=== PATIENT | female | born 1990 | race Caucasian/White ===

== ENCOUNTER 2018-06-30 12:28 | Day surgery (SDC) | payer SELFPAY ==
[2018-06-30] VITALS (9 sets, daily range): BP systolic 113–133; BP diastolic 69–84; PULSE 60–91; RESP 14–16; TEMP 36.6–37; O2SAT 92–98; BMI 37.7
[2018-06-30 13:01] LABS: Internal QC Validated? YES +Cl - CLEAR BKGD; Pregnancy, Urine Negative Negative
[2018-06-30] MEDS: Cefazolin 2 GM in 0.9% Normal Saline 100 ML IV (15:04)
[2018-06-30] MEDS: Bupiv/Epi 0.5% Mpf 30 ML Vial (15:36)
--- NOTE | 2018-06-30 15:51 | PCM.IMDPSTOP ---
Immediate Post-Op Note Date of Procedure: 06/30/18 Primary Surgeon/Physician: Daniel Shaikh MD director school of nursing: None Pre-Operative Diagnosis: right knee pain Post-Operative Diagnosis: right knee plicae Surgery/Procedure Performed:: right knee arthroscopic plicae resection Description of Surgical Findings:: see op report Estimated Blood Loss: minimal Specimen's removed: none Type of Anesthesia:: General Special Medications: ancef - Admit VTE Documentation VTE Present on Admission: No VTE Mechan Device Prophylaxis: SCD's VTE Pharm Prophylaxis ordered?: Yes
--- NOTE | 2018-07-06 21:36 | PCM.OPRPT ---
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 Patient was brought back to the operating room where they were transferred to the bed. Anesthesia assumed control of the C-spine airway and administered anesthetic. All bony prominences were identified and well-padded and the R leg was placed in the arthroscopic leg rodriguez. The contralateral leg was then draped over the bed and well-padded. There was padding underneath both sciatic nerves. The foot of the bed was then dropped and the R leg was prepped in a sterile fashion. The surgeon then scrubbed. Upon reentering the room, the operative leg was draped in a standard orthopedic fashion. A timeout was called, everyone agreed upon the side, the site, the procedure to be performed, patient's identity and antibiotics given. Incisions were marked out for the medial and lateral infrapatellar portals. Esmarch bandage was then used to exsanguinate the leg and tourniquet was placed at 250 mmHg. At this time, the lateral portal incision was made in a vertical fashion. The trocar was placed into the joint. The camera was then placed and the patellofemoral joint was visualized. The patella did appear to have grade 1 chondral changes. The trochlea appeared to have minimal chondral changes. We then directed our attention to the medial gutter where there was no foreign body. upon trying to enter the medial gutter a large medial plicae was encountered and there were noted striations on the medial femoral condyle. Then directed our attention to the medial joint compartment. There were minimal chondral changes on the medial distal femur, minimal chondral changes on the medial tibial plateau. The medial meniscus had no tears. The medial portal was then placed under direct visualization using a spinal needle an 11 blade scalpel. Once this was done a probe was placed in the joint and the meniscus was probed finding no appreciable tears. Attention was then turned towards the notch where the anterior cruciate ligament was intact. PCL was visualized and appeared intact. Attention was then directed towards the lateral compartment where the lateral distal femur had minimal chondral changes, the lateral proximal tibia had minimal chondral changes. The lateral meniscus had minimal. We then directed our attention to the lateral gutter, which was visualized and no free bodies were noted. At this time our attention was again directed to the PF joint and the plicae was again visualized. the shaver was put into the joint and the plicae was resected. At this time the wound was copiously irrigated out with normal saline with epinephrine. The wound was closed with 4-0 nylon and 0.5% Marcaine and epinephrine were injected for local anesthetic. Xeroform was placed over the incision. Sterile dressing was placed. Compressive dressing was placed. Tourniquet was let down. For that there was then placed up. Patient was awakened by anesthesia patient was transferred to the PACU for recovery in stable condition. Postoperative plan: Patient will be made weight-bear as tolerated. Return to activities as tolerated. He will come to the office in 2 weeks for postoperative wound check and suture removal. If he is doing well that time he can follow-up as needed. - Complications none - Admit VTE Documentation VTE Present on Admission: No VTE Mechan Device Prophylaxis: SCD's VTE Pharm Prophylaxis ordered?: Yes
--- OUTSIDE RECORDS SUMMARY | 2018-08-25 21:34 | XMS RPT_ITS ---
:1990 Author Organization [facility] Care Team Providers Name Role Phone Daniel Shaikh Attending Unavailable Daniel Shaikh Referring Unavailable Sierra Holloway Primary Care Unavailable PROBLEMS PROBLEMS DATE TYPE CONDITION / CODE ATTENDING STATUS SOURCE 06/30/2018 Unknown G89.18 - Other acute Daniel Shaikh Active [place] postprocedural pain [facility] / G89.18(ICD-10) Hospital Repository PROCEDURES PROCEDURES No Procedure Records FoundRESULTS RESULTS OPERATIVE REPORT Observed: 07/06/2018 Status: F Source: RONNA 9:48 PM [facility] REPOSITORY [facility] Medical Records Department [address] [place] [address] Operative Report 07/06/18 2136 MR#: [id number] Acct: [id number] Name: GISSELL SHEEHAN Rep #: [id number] : 1990 28 From: Daniel Shaikh MD PCP: Sierra Holloway DO Status: [facility] Y Location: [facility] [place] Report of Operation Date of Procedure: 06/30/18 Pre-Operative Diagnosis: right knee pain Post-Operative Diagnosis: right knee plicae Surgery/Procedure Performed:: right knee arthroscopic plicae resection Description of Surgical Findings:: see op report manager agency: None Type of Anesthesia:: General Special Medications: ancef Specimen's removed: none Estimated Blood Loss (mL): minimal Fluids Replaced: crystalloid Description of Procedure: On the date of the procedure, the patient's R lower extremity was marked in the preoperative area. Patient was brought back to the operating room where they were transferred to the bed. Anesthesia assumed control of the C-spine airway and administered anesthetic. All bony prominences were identified and well-padded and the R leg was placed in the arthroscopic leg rodriguez. The contralateral leg was then draped over the bed and well-padded. There was padding underneath both sciatic nerves. The foot of the bed was then dropped and the R leg was prepped in a sterile fashion. The surgeon then scrubbed. Upon reentering the room, the operative leg was draped in a standard orthopedic fashion. A timeout was called, everyone agreed upon the side, the site, the procedure to be performed, patient's identity and antibiotics given. Incisions were marked out for the medial and lateral infrapatellar portals. Esmarch bandage was then used to exsanguinate the leg and tourniquet was placed at 250 mmHg. At this time, the lateral portal incision was made in a vertical fashion. The trocar was placed into the joint. The camera was then placed and the patellofemoral joint was visualized. The patella did appear to have grade 1 chondral changes. The trochlea appeared to have minimal chondral changes. We then directed our attention to the medial gutter where there was no foreign body. upon trying to enter the medial gutter a large medial plicae was encountered and there were noted striations on the medial femoral condyle. Then directed our attention to the medial joint compartment. There were minimal chondral changes on the medial distal femur, minimal chondral changes on the medial tibial plateau. The medial meniscus had no tears. The medial portal was then placed under direct visualization using a spinal needle an 11 blade scalpel. Once this was done a probe was placed in the joint and the meniscus was probed finding no appreciable tears. Attention was then turned towards the notch where the anterior cruciate ligament was intact. PCL was visualized and appeared intact. Attention was then directed towards the lateral compartment where the lateral distal femur had minimal chondral changes, the lateral proximal tibia had minimal chondral changes. The lateral meniscus had minimal. We then directed our attention to the lateral gutter, which was visualized and no free bodies were noted. At this time our attention was again directed to the PF joint and the plicae was again visualized. the shaver was put into the joint and the plicae was resected. At this time the wound was copiously irrigated out with normal saline with epinephrine. The wound was closed with 4-0 nylon and 0.5% Marcaine and epinephrine were injected for local anesthetic. Xeroform was placed over the incision. Sterile dressing was placed. Compressive dressing was placed. Tourniquet was let down. For that there was then placed up. Patient was awakened by anesthesia patient was transferred to the PACU for recovery in stable condition. Postoperative plan: Patient will be made weight-bear as tolerated. Return to activities as tolerated. He will come to the office in 2 weeks for postoperative wound check and suture removal. If he is doing well that time he can follow-up as needed. - Complications none - Admit VTE Documentation VTE Present on Admission: No VTE Mechan Device Prophylaxis: SCD's VTE Pharm Prophylaxis ordered?: Yes 07/06/182147 <Electronically signed by Daniel Shaikh MD> Date Daniel Shaikh MD CC: Sierra Holloway, DO; Daniel Shaikh MD Signed ,URINE Collected: 06/30/2018 Status: F Source: RONNA 12:40 PM [facility] REPOSITORY Order Comment: Reason for Laboratory Test preop TYPE CODE TESTS RESULT OUT OF REFERENCE UNITS RANGE LAB L400.8000 Negative Normal HCGUQUAL Negative Result Comment: Very dilute urine specimens, as indicated by a low specific gravity, may not contain bank representative levels of hCG. If is still suspected, a first morning urine specimen should be collected 48 hours later and tested. Performed By: #### [id number] #### [facility] [address] [place], [address] ALLERGIES ALLERGIES DATE TYPE / CODE NAME / CODE REACTION SEVERITY SOURCE 06/29/2018 Drug bee venom Anaphylaxis Unknown Ronna Allergy/416 protein ([facility] 420084(SNOM bee)/[id number] Hospital ED CT) 5(RXNORM) Repository ENCOUNTERS ENCOUNTERS ADMIT/DISCHARGE ACCOUNT ADMITTING ENCOUNTER LOCATION SOURCE NUMBER CLASS 06/30/2018/ [id number] Ambulatory Ronna Bentley 8 8 [facility] ing:SDCRoom: Repository [id number] PAYERS PAYERS ENCOUNTER GUARANTOR PAYER SUBSCRIBER SOURCE 06/30/2018 ABY Primary NOT GIVENUNK Ronna [id number] Insurance:SELF PAY [place], [place] Number: Effective Repository [id number]: [phone] Date:2018-06-21 [phone] ()
== END 2018-06-30 18:35 | disposition home or self-care (01) ==
LOC: SDC 12:31 → AC 12:31
PROVIDERS: Anesthesiology; Family Provider Family Medicine; PCP Family Medicine; Referring Provider Specialist; Visit Provider Specialist
PROC: (CPT 29870; principal; 2018-06-30 15:00)
DX: M25.561 Pain in right knee (principal); F41.9 Anxiety disorder, unspecified; Z79.899 Other long term (current) drug therapy; M22.2X1 Patellofemoral disorders, right knee
CPT/HCPCS: 29875; 81025; J7120; J2405

== ENCOUNTER → 2019-04-28 14:27 | Outpatient (CLI) | payer OTHER, SELFPAY ==
[2019-04-28 13:56] VITALS: BMI 37.7
[2019-04-28 15:19] LABS: Absolute Lymphocyte Count 2.62 X10^3/uL (0.83-4.51); Absolute Neutrophil Count 4.6 X10^3/uL (2.0-7.7); Basophil# 0.06 X10^3/uL; Basophil% 0.7 % (0-1); Eosinophil# 0.18 X10^3/uL; Eosinophils% 2.2 % (0-5); Hematocrit 40.6 % (37-47); Hemoglobin 14.1 g/dL (12.0-15.0); Lymphocyte # 2.62 X10^3/ul (4.0); Lymphocyte % 32.6 % (19-41); Mean Corp Hgb Conc 34.7 g/dL (32-36); Mean Corpuscular Hgb 31.7 pg (27.0-32.0); Mean Corpuscular Volume 91.2 fL (81-99); Mean Platelet Vol. 10.9 fl (6.2-12.0); Monocyte# 0.58 X10^3/uL; Monocyte% 7.2 % (0-10); NRBC Flagged by Analyzer 0 % (0-5); Neutrophil # 4.57 X10^3/uL (2.7-7.7); Neutrophil % 56.9 % (47-70); Platelet Count 211 K/mm3 (150-450); RBC Distribution Width CV 11.9 % (11.6-14.6); RBC Distribution Width SD 39.5 fl (35.1-43.9); Red Blood Count 4.45 M/mm3 (4.2-5.4)
[2019-04-28 15:44] LABS: Thyroid Stim Hormone (TSH) 2.44 uIU/mL (0.358-3.74)
== END ==
PROVIDERS: Family Provider Family Medicine; PCP Family Medicine; Referring Provider Obstetrics & Gynecology; Visit Provider Obstetrics & Gynecology
DX: N93.9 Abnormal uterine and vaginal bleeding, unspecified (principal)
CPT/HCPCS: 36415; 84443; 85025

== ENCOUNTER → 2020-07-05 16:26 | Outpatient (CLI) | payer SELFPAY ==
[2020-07-05 15:06] VITALS: BMI 38.2
[2020-07-05 18:02] LABS: Prolactin 9.9 ng/mL; Thyroid Stim Hormone (TSH) 1.85 uIU/mL (0.358-3.74)
[2020-07-09 20:07] LABS: Dilute Prothrombin Time (dPT) 37.8 sec (0.0-55.0); Dilute Russell Viper Venom 33.7 sec (0.0-47.0); PTT-LA 34.4 sec (0.0-51.9); Thrombin Time 17.2 sec (0.0-23.0); dPT Confirm Ratio 1.22 Ratio (0.00-1.40)
[2020-07-09 20:26] LABS: Anti-Cardiolipin Ab, IgA, Qn < 9 APL U/mL (0-11); Anti-Cardiolipin Ab, IgG, Qn < 9 GPL U/mL (0-14); Anti-Cardiolipin Ab, IgM, Qn 13 MPL U/mL (0-12); Beta-2-Glycoprotein I IgA <9 (0-25); Beta-2-Glycoprotein I IgG <9 (0-20); Beta-2-Glycoprotein I IgM <9 (0-32); Interpretation Comment: (.)
== END ==
PROVIDERS: PCP Family Medicine; Referring Provider Obstetrics & Gynecology; Visit Provider Obstetrics & Gynecology
DX: N94.3 Premenstrual tension syndrome (principal); N93.9 Abnormal uterine and vaginal bleeding, unspecified; N97.9 Female infertility, unspecified
CPT/HCPCS: 36415; 80194; 82627; 84146; 84403; 84443; 86146; 86147; 82626

== ENCOUNTER → 2020-07-09 14:27 | Outpatient (CLI) | payer SELFPAY ==
[2020-07-05 15:06] VITALS: BMI 38.2
--- NOTE | 2020-07-09 14:32 | US_ITS ---
HISTORY: BILAT PELVIC PAIN X 3 YEARSHX OF C SECTIONS /16/17HX OF SURGERY FOR ECTOPIC 19 ADDITIONAL HISTORY: None provided. COMPARISON: None TECHNIQUE: Transabdominal and transvaginal sonographic images of the pelvis were acquired utilizing grayscale, color Doppler and spectral Doppler imaging. FINDINGS: UTERUS: Uterus measures 9.1 x 4.9 x 6.4 cm on transvaginal imaging. No distinct myometrial mass. section scar. ENDOMETRIUM: Normal measuring 8 mm in thickness. OVARIES: Right ovary measures 2.7 x 3.2 x 3.8 cm and left ovary measures 4.7 x 3.1 x 3.4 cm. No distinct mass seen on transabdominal imaging. Bilateral follicles are noted measuring up to 1.7 cm. Flow demonstrated in the ovaries with spectral Doppler evaluation. Not visualized due to bowel gas on transvaginal imaging. ADNEXA: No mass. FREE FLUID: Small amount of free fluid. US/Transvaginal Non- IMPRESSION: No significant abnormality. at 0549 Reported and signed by: Millie Espinoza MD Electronically Signed: Millie Espinoza MD at 5:48 EST Tel , Service support ,
--- NOTE | 2020-07-09 14:32 | US_ITS ---
HISTORY: BILAT PELVIC PAIN X 3 YEARSHX OF C SECTIONS /16/17HX OF SURGERY FOR ECTOPIC 19 ADDITIONAL HISTORY: None provided. COMPARISON: None TECHNIQUE: Transabdominal and transvaginal sonographic images of the pelvis were acquired utilizing grayscale, color Doppler and spectral Doppler imaging. FINDINGS: UTERUS: Uterus measures 9.1 x 4.9 x 6.4 cm on transvaginal imaging. No distinct myometrial mass. section scar. ENDOMETRIUM: Normal measuring 8 mm in thickness. OVARIES: Right ovary measures 2.7 x 3.2 x 3.8 cm and left ovary measures 4.7 x 3.1 x 3.4 cm. No distinct mass seen on transabdominal imaging. Bilateral follicles are noted measuring up to 1.7 cm. Flow demonstrated in the ovaries with spectral Doppler evaluation. Not visualized due to bowel gas on transvaginal imaging. ADNEXA: No mass. FREE FLUID: Small amount of free fluid. US/Pelvic (Non ) IMPRESSION: No significant abnormality. at 0549 Reported and signed by: Millie Espinoza MD Electronically Signed: Millie Espinoza MD at 5:48 EST Tel , Service support ,
== END ==
PROVIDERS: PCP Family Medicine; Referring Provider Obstetrics & Gynecology; Visit Provider Obstetrics & Gynecology
DX: R10.2 Pelvic and perineal pain (principal)
CPT/HCPCS: 76830; 76856; 93976

== ENCOUNTER → 2020-09-20 11:40 | Outpatient (CLI) | payer SELFPAY ==
[2020-07-05 15:06] VITALS: BMI 38.2
--- NOTE | 2020-09-20 11:50 | RAD_ITS ---
STUDY: HYSTEROSALPINGOGRAM. REASON FOR EXAM: Female, 30 years old. Infertility FLUOROSCOPY TIME (if supplied): ( 16 seconds. ) minutes/seconds. 2 images were submitted. TECHNIQUE: A hysterosalpingogram was performed by the auditor tax. Imaging was submitted. COMPARISON: None. FINDINGS: The uterus is unremarkable. The left fallopian tube is patent with spill. The patient is status post right fallopian tube resection due to prior ectopic . RAD/Salpingogram IMPRESSION: Patency of the left fallopian tube. The uterus is unremarkable. Electronically Signed: Wilner Arroyo MD at 13:13 EST , Service support ,
--- NOTE | 2020-09-20 12:48 | OP.PCM_ITS ---
Problem List (1) History of ectopic Status: Acute (2) Infertility Status: Acute Report of Operation Date of Procedure: 09/20/20 Pre-Operative Diagnosis: Infertility, history of ectopic Post-Operative Diagnosis: Same Surgery/Procedure Performed:: Hysterosalpingogram Description of Surgical Findings:: Left tubal patency. Right fallopian tube surgically absent. 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 Speculum was placed in the vagina until the cervix was easily visualized. Her cervix was cleansed with a Betadine solution. The balloon on the HSG catheter was inflated. Contrast medium was injected through the catheter and left tubal patency was confirmed. The procedure was deemed complete. All instruments removed from the patient. - Complications None apparent Multi Select Codes - Urinary/Genital Urinary/Genital CPT Codes: 39138 HSG/SIS
== END ==
PROVIDERS: PCP Family Medicine; Referring Provider Obstetrics & Gynecology; Visit Provider Obstetrics & Gynecology
DX: N97.9 Female infertility, unspecified (principal)
CPT/HCPCS: 58340; 74740

== ENCOUNTER → 2022-01-27 | Outpatient (CLI) | payer SELFPAY ==
[2022-01-27 09:56] LABS: Thyroid Stim Hormone (TSH) 2.58 uIU/mL (0.358-3.74)
[2022-01-27 10:05] LABS: Hemoglobin A1c 5.8 % (3.8-5.6)
[2022-01-29 18:07] LABS: Dilute Prothrombin Time (dPT) 35.3 sec (0.0-47.6); Dilute Russell Viper Venom 34.2 sec (0.0-47.0); PTT-LA 33.5 sec (0.0-51.9); Thrombin Time 18.4 sec (0.0-23.0); dPT Confirm Ratio 1.03 Ratio (0.00-1.34)
[2022-01-29 19:22] LABS: Anti-Cardiolipin Ab, IgA, Qn < 9 APL U/mL (0-11); Anti-Cardiolipin Ab, IgG, Qn < 9 GPL U/mL (0-14); Anti-Cardiolipin Ab, IgM, Qn 14 MPL U/mL (0-12); Beta-2-Glycoprotein I IgA <9 (0-25); Beta-2-Glycoprotein I IgG <9 (0-20); Beta-2-Glycoprotein I IgM <9 (0-32); Interpretation Comment: (.)
== END | disposition home or self-care (01) ==
LOC: PAVLAB 09:05
PROVIDERS: PCP Family Medicine; Referring Provider Obstetrics & Gynecology; Visit Provider Obstetrics & Gynecology
DX: N96 Recurrent pregnancy loss (principal); N93.9 Abnormal uterine and vaginal bleeding, unspecified
CPT/HCPCS: 36415; 83036; 84443; 86146; 86147

== ENCOUNTER → 2022-02-10 | Outpatient (CLI) | payer SELFPAY ==
--- NOTE | 2022-02-10 11:30 | US_ITS ---
STUDY: ULTRASOUND TRANSVAGINAL CLINICAL: Female, 31 years old. pelvic pain-CHRONIC -- AUB -- C SECTIONS 14,16,17 -- SURGERY FOR ECTOPIC 2019 9 para 3 AB 5 ectopic 1. x3. LMP 02/06/2022. TECHNIQUE: Transvaginal COMPARISON: 07/09/2020 FINDINGS: Normal uterine size measuring 8.2 x 6 x 4 cm in maximal craniocaudal dimension. There are no myometrial masses. Normal endometrial thickness measuring 7 mm. There are no endometrial masses, and there is no fluid in the endometrial cavity. Normal uterine cervix. Normal right ovary, measuring 2.6 x 3.2 x 2.5 cm. There is a 1.6 x 2.3 x 1.3 cm cyst. Only seen transabdominally. Left ovary measures 6 x 5.5 x 4.5 cm. There is a large simple ovarian cyst 5.5 x 5 x 3.3 cm. There is no free fluid in the pelvis. Polycystic ovary disease: No. There is color flow to both ovaries. Urinary bladder volume 315 ml. US/Transvaginal Non- IMPRESSION: No adnexal masses, large pelvic fluid or ovarian torsion. Large simple appearing left ovarian cyst. Follow-up post one menstrual cycle recommended, depending on suspicion level follow-up ultrasound/MRI. Small right ovarian cyst. Electronically Signed: Sarah Rust MD at 4:16 EDT Reading Location ID and State: , Service support ,
--- NOTE | 2022-02-10 11:30 | US_ITS ---
STUDY: ULTRASOUND TRANSVAGINAL CLINICAL: Female, 31 years old. pelvic pain-CHRONIC -- AUB -- C SECTIONS 14,16,17 -- SURGERY FOR ECTOPIC 2019 9 para 3 AB 5 ectopic 1. x3. LMP 02/06/2022. TECHNIQUE: Transvaginal COMPARISON: 07/09/2020 FINDINGS: Normal uterine size measuring 8.2 x 6 x 4 cm in maximal craniocaudal dimension. There are no myometrial masses. Normal endometrial thickness measuring 7 mm. There are no endometrial masses, and there is no fluid in the endometrial cavity. Normal uterine cervix. Normal right ovary, measuring 2.6 x 3.2 x 2.5 cm. There is a 1.6 x 2.3 x 1.3 cm cyst. Only seen transabdominally. Left ovary measures 6 x 5.5 x 4.5 cm. There is a large simple ovarian cyst 5.5 x 5 x 3.3 cm. There is no free fluid in the pelvis. Polycystic ovary disease: No. There is color flow to both ovaries. Urinary bladder volume 315 ml. US/Pelvic (Non ) IMPRESSION: No adnexal masses, large pelvic fluid or ovarian torsion. Large simple appearing left ovarian cyst. Follow-up post one menstrual cycle recommended, depending on suspicion level follow-up ultrasound/MRI. Small right ovarian cyst. Electronically Signed: Sarah Rust MD at 4:16 EDT Reading Location ID and State: , Service support ,
[2022-02-10 13:27] LABS: Cholesterol 158 mg/dL (200); High Density Lipoprotein 37 mg/dL; Triglycerides 99 mg/dL; Very Low Density Lipoprotein 20 mg/dL (5-40)
== END | disposition home or self-care (01) ==
PROVIDERS: PCP Family Medicine; Referring Provider Obstetrics & Gynecology; Visit Provider Obstetrics & Gynecology
DX: N93.9 Abnormal uterine and vaginal bleeding, unspecified (principal); R10.2 Pelvic and perineal pain
CPT/HCPCS: 36415; 76830; 76856; 80061; 93976

== ENCOUNTER → 2022-04-08 | Outpatient (CLI) | payer SELFPAY, OTHER ==
--- NOTE | 2022-04-08 12:32 | US_ITS ---
EXAM: US PELVIS TRANSABDOMINAL AND TRANSVAGINAL, COMPLETE CLINICAL INDICATION: follow up ultrasound -- left ovarian cyst follow up ultrasound -- left ovarian cyst TECHNIQUE: Transabdominal and transvaginal pelvic ultrasound was performed with grayscale and color Doppler imaging. Transvaginal imaging was used for better evaluation of the endometrium and adnexa. This report was created using [employer] report generation technology. COMPARISON: Ultrasound 02/10/2022 and 07/09/2020 FINDINGS: UTERUS/CERVIX: The uterus is anteverted and measures 10.7 x 5.4 x 3.7 cm. The endometrium measures 5 mm in thickness and it is hyperechoic. There is no uterine mass. RIGHT OVARY: The right ovary measures 3.2 x 2.8 x 2.1 cm. Blood flow is present in the right ovary. LEFT OVARY: The left ovary measures 8.2 x 7.0 x 4.8 cm. There is a simple appearing left ovarian cyst, which measures 6.7 x 4.4 x 6.1 cm. On the previous exam, the cyst measured 5.3 x 3.3 x 4.9 cm. Blood flow is present in the left ovary. FREE FLUID: There is a small amount of free fluid in the posterior cul-de-sac of the pelvis. BLADDER: Unremarkable as visualized. Wall is normal thickness for degree of distention. US/Transvaginal Non- IMPRESSION: 1. 6.7 cm simple appearing left ovarian cyst, which has increased in size from the exam done in January. SRU Consensus Conference guidelines (Cleary, et. al. Radiology 2019;293:359-371) recommend follow-up pelvic ultrasound in 1 year. 2. Small amount of free fluid in the posterior cul-de-sac pelvis, probably physiologic. Electronically Signed: Murray Taylor MD at 4:40 EDT ,
--- NOTE | 2022-04-08 12:32 | US_ITS ---
EXAM: US PELVIS TRANSABDOMINAL AND TRANSVAGINAL, COMPLETE CLINICAL INDICATION: follow up ultrasound -- left ovarian cyst follow up ultrasound -- left ovarian cyst TECHNIQUE: Transabdominal and transvaginal pelvic ultrasound was performed with grayscale and color Doppler imaging. Transvaginal imaging was used for better evaluation of the endometrium and adnexa. This report was created using [facility] report generation technology. COMPARISON: Ultrasound 02/10/2022 and 07/09/2020 FINDINGS: UTERUS/CERVIX: The uterus is anteverted and measures 10.7 x 5.4 x 3.7 cm. The endometrium measures 5 mm in thickness and it is hyperechoic. There is no uterine mass. RIGHT OVARY: The right ovary measures 3.2 x 2.8 x 2.1 cm. Blood flow is present in the right ovary. LEFT OVARY: The left ovary measures 8.2 x 7.0 x 4.8 cm. There is a simple appearing left ovarian cyst, which measures 6.7 x 4.4 x 6.1 cm. On the previous exam, the cyst measured 5.3 x 3.3 x 4.9 cm. Blood flow is present in the left ovary. FREE FLUID: There is a small amount of free fluid in the posterior cul-de-sac of the pelvis. BLADDER: Unremarkable as visualized. Wall is normal thickness for degree of distention. US/Pelvic (Non ) IMPRESSION: 1. 6.7 cm simple appearing left ovarian cyst, which has increased in size from the exam done in January. SRU Consensus Conference guidelines (Cleary, et. al. Radiology 2019;293:359-371) recommend follow-up pelvic ultrasound in 1 year. 2. Small amount of free fluid in the posterior cul-de-sac pelvis, probably physiologic. Electronically Signed: Murray Taylor MD at 4:40 EDT ,
== END | disposition home or self-care (01) ==
PROVIDERS: PCP Family Medicine; Visit Provider Obstetrics & Gynecology
DX: N83.202 Unspecified ovarian cyst, left side (principal)
CPT/HCPCS: 76830; 76856

== ENCOUNTER 2022-05-13 08:54 | Day surgery (SDC) | payer SELFPAY ==
[2022-05-09 09:28] LABS: Hematocrit 41.9 % (37-47); Hemoglobin 14.5 g/dL (12.0-15.0); Mean Corp Hgb Conc 34.6 g/dL (32-36); Mean Corpuscular Hgb 30.8 pg (27.0-32.0); Mean Platelet Vol. 10.5 fl (6.2-12.0); Platelet Count 258 K/mm3 (150-450); RBC Distribution Width CV 11.4 % (11.6-14.6); RBC Distribution Width SD 36.6 fl (35.1-43.9); Red Blood Count 4.71 M/mm3 (4.2-5.4)
[2022-05-09 10:09] LABS: Anion Gap 8 (5-15); BUN 9 mg/dL (7-18); BUN/Creat Ratio 8.8 RATIO (10-20); Calcium,Total 9.9 mg/dL (8.5-10.1); Chloride 103 mmol/L (98-107); Creatinine, Serum 1.02 mg/dL (0.55-1.02); EST Glomerular Filtration Rate 66 mL/min (>60); Est Glom Filt Rate - Afr Amer 80 mL/min (>60); Glucose 104 mg/dL (74-106); Potassium 3.9 mmol/L (3.5-5.1); Sodium Level 137 mmol/L (136-145)
[2022-05-09 10:13] LABS: Hemoglobin A1c 5.5 % (3.8-5.6)
[2022-05-13] VITALS (7 sets, daily range): BP systolic 122–137; BP diastolic 75–96; PULSE 61–76; RESP 16; TEMP 36.3–37.1; O2SAT 96–100; BMI 36.3
[2022-05-13] MEDS: Lactated Ringers 1,000 ML 15 ML IV (09:10)
[2022-05-13 09:34] LABS: Internal QC Validated? YES +Cl - CLEAR BKGD; Pregnancy, Urine Negative Negative
[2022-05-13 09:45] LABS: Bedside Glucose 105 mg/dL (74-106)
[2022-05-13] MEDS: Enoxaparin 40 MG/0.4 ML Syringe SC (10:13)
--- NOTE | 2022-05-13 10:22 | HP.PCM_ITS ---
History and Physical Intake Vital Signs ? 05/05/2209:10 05/05/2209:12 Height 5 ft 3 in 5 ft 3 in Weight: 204 lb ? BMI 36.1 ? BP 126/91 H ? 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 Is patient in pain?: No Allergies bee venom protein (honey bee) Allergy (Verified 01/27/22 08:08) Anaphylaxis Medications alprazolam 0.5 mg tablet 0.5 mg PO PRN PRN Anxiety 06/29/18 [History Confirmed 05/05/22] loratadine 10 mg tablet (Claritin) 10 mg PO DAILY 01/27/22 [History Confirmed 05/05/22] magnesium oxide 500 mg capsule 500 mg PO DAILY 01/27/22 [History Confirmed 05/05/22] metformin 500 mg tablet 500 mg PO BID #60 tabs 01/27/22 [Rx Confirmed 05/05/22] multivitamin 1 tab PO DAILY 01/27/22 [History Confirmed 04/03/22] Is last menstrual period known: Yes Last Menstrual Period: 04/27/22 Post menopausal: No Patient : No : No [facility] History?(Updated 05/05/22 @ 09:[address] Virgie Matias MD) Anxiety Depression History of gestational diabetes Surgical History? delivery delivered H/O: knee surgery History of laparotomy History of tonsillectomy Hx laparoscopic cholecystectomy Family History? Father Diabetes Social History? Smoking Status:? Never smoker alcohol intake:? never substance use type:? does not use caffeine:? Yes what type of physical activity do you participate in:? walking seatbelt use:? always do you feel safe at home:? Yes additional social history:? 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 she is having intermittent pelvic pain, trouble sitting for long periods of time and recently diagnosed with diabetes, on metformin.? she denies any vb abnormal discharge. she has painful menses and they are still irregular.? cyclic provera is ordered.? cyst increased to 6.7 cm and is still simple in size.? no suspicion for ovarian torsion at this time. Female Reproductive History Last Menstrual Period: 04/27/22 Questions: metorrhagia: No, sexually active: Yes, dyspareunia: No and PCB: No Menopausal Symptoms: No hot flashes, No night sweats, No weight change, No mood changes, No difficulty concentrating, No sleep problems and No change in libido History ? ? ? 9 ? Elective abortions ? Hx Para ? ? ? 3 ? Spontaneous abortions ? ? ? 5 Hx # Term Pregnancies ? Ectopic pregnancies ? ? ? 1 Hx # Pregnancies ? Multiple births ? # of living children ? ? ? 3 Past Pregnancies Del. Date Name GA/Weeks Outcome Route Bth Weight Gen Labor Lgth Anesthesia Del Locatn Provider FOB Unknown 2013 [place] ? live - full term C-s ection ? Male ? ? [facility] [place] ? ? Unknown 2013 [place] ? live - full term C-sec tion ? Female ? ? Dr Jimenez ? ? Unknown 2016 [place] ? live - full term C-s ection ? Male ? ? Dr. Jimenez ? ? ROS Const Constitutional: Denies fatigue, night sweats, weight gain or weight loss ENT ENT: Reports system reviewed and no additional complaints, except as documented Cardio Card: Denies chest pain Resp Resp: Denies cough or dyspnea GI GI: Reports as per HPI, abdominal pain and bloating; Denies constipation, nausea or vomiting : Reports as per HPI; Denies hot flashes, nipple discharge, vaginal discharge, vaginal dryness, vaginal odor or vaginal pruritus Musc Musc: Denies arthralgias, back pain or muscle weakness Skin Skin/Breast: Denies alopecia, change in hair, dry skin, breast mass, breast pa in, breast skin changes or nipple discharge Neuro Neuro: Reports system reviewed and no additional complaints, except as documented Psych Psych: Reports system reviewed and no additional complaints, except as documented; Denies change in libido or difficulty concentrating Endo Endo: Denies cold intolerance, excessive sweating, heat intolerance or polydipsia Ankit/Lymph Hematologic/Lymphatic: Denies easy bleeding, Denies easy bruising and Denies lymphadenopathy Exam Const General: cooperative, healthy appearing, comfortable, no acute distress and well developed Orientation: alert [facility] Head: normal to inspection and normocephalic Ears: hearing grossly normal bilaterally and external ears normal Nose: external nose normal and nares normal Face and sinus: normal facial exam Neck Neck: normal visual inspection and no lymphadenopathy Thyroid: thyroid normal Chest Chest palpation & inspection: normal inspection of the chest Resp Effort & Inspection: normal respiratory effort Auscultation: clear to auscultation bilaterally Cardio Rate: regular rate Rhythm: regular rhythm Heart Sounds: S1 normal and S2 normal GI Inspection: normal to inspection and non-distended Palpation: soft and no hepatosplenomegaly Musc Other: gross motor intact no deficits, full bilateral strength Skin General: no rashes or lesions noted Neuro General: patient alert, patient awake, moves all extremities and no focal motor deficits Motor: muscle tone normal throughout Extrem General: normal to inspection and no pedal edema Psych Appearance: grossly normal Mental Status: mental status grossly normal Affect: normal affect Speech and Movement: speech and movement normal Coding Level of Care Code Off vis,est,level 4 Diagnoses Diabetes? E11.9 APL (antiphospholipid syndrome)? D68.61 Polycystic ovarian syndrome? E28.2 Infertility? Abnormal uterine bleeding? N93.9 Ovarian cyst? N83.209 Assessment and Plan Assessment and Plan (1) Diabetes: ?Status:?Acute ?Comment: mgd by PCP. metformin. (2) APL (antiphospholipid syndrome): ?Status:?Acute (3) Polycystic ovarian syndrome: ?Status:?Acute ?Comment: metformin.? weight management. (4) Infertility: ?Status:?Acute ?Comment: Progesterone level 11/16/20- 1.1.? sec to PCOS (5) Abnormal uterine bleeding: ?Status:?Acute ?Comment: sec to PCOS, cyclic provera ordered, discussed weight loss.? metformin ordered to aid (6) Ovarian cyst: ?Status:?Acute ?Comment: left ovarian cyst- inc in size 6.7 cm plan laparoscopic ovarian cystectomy, chromotubation. no preop needed. Plan After discussing the patient's diagnosis and treatment plan options, patient wishes to proceed with surgical management.? I have discussed with the patient the risks, benefits, and alternatives of the procedure which include but are not limited to risks of anesthesia, bleeding, infection, possible damage to bowel, bladder, or surrounding vasculature which could lead to additional surgery to evaluate any complications.? Patient agrees to procedure and wishes to proceed.? ACOG/uptodate references given for additional information regarding procedure.? UPDATE- I have seen the patient and performed any clinically relevant updates to the history and physical exam. Virgie Matias MD
--- NOTE | 2022-05-13 10:25 | PCM.OPRPT ---
Problems Associated Problem List Diagnoses (1) Abnormal uterine bleeding: (2) Ovarian cyst: (3) Polycystic ovarian syndrome: (4) APL (antiphospholipid syndrome): Report of Operation Date of Procedure: 05/13/22 Pre-Operative Diagnosis: see problem list Post-Operative Diagnosis: same Surgery/Procedure Performed:: laparoscopic lysis of adhesions left ovarian cystotomy chromotubation Surgeon: Virgie Matias alkylation operator: None (bam) Type of Anesthesia: General and Local Special Medications: floseal karo Specimen's removed: none Drains: none Estimated Blood Loss (mL): 50 Fluids Replaced: crystalloid Description of Procedure: Patient was taken in the operating room and was placed under general anesthesia was prepped and draped in normal sterile fashion in the dorsal lithotomy position. Bladder was drained of clear urine and SCDs were on preoperatively. Uterus was sounded and a uterine manipulator was placed after dilating. Attention was then paid to the abdominal portion of the procedure and the umbilicus was elevated with towel clamps and injected with Marcaine and after a 5 mm port was placed under direct visualization. Right and left lower quadrant 5 mm ports were also placed. Stage IV endometriosis was visualized with a complete obliteration of the cul-de-sac and sigmoid colon and bowel adhesed to the entire posterior uterine corpus right and left adnexa and ovarian fossa's. With very careful hydrodissection and blunt and sharp dissection using the LigaSure device and laparoscopic scissors progressive adhesiolysis was performed taking approximately 45 minutes total in length to restore normal anatomy both in the uterus bowel was epiploic areas and bilateral adnexa. The right ovary was noted to be within normal limits just adherent to the right pelvic sidewall with bowel adhesions around were taken down sharply and bluntly and then with hydrodissection. The left ovary was noted to be significantly enlarged and polycystic which was freed up by taking down carefully the bowel adhesions using the LigaSure device and with hydrodissection. Once the ovary was free and longitudinal incision was made with the monopolar energy and opened up further using the LigaSure device. Cystectomy was attempted but the cyst wall was noted to just be physiologic lining and therefore the cyst was noted to be a likely etiology of previous multicystic cavity due to the PCOS history. Hemostasis was noted after Floseal was placed and cautery used in the ovary. Karo and some Floseal was placed over the raw areas of where the dissection was taken down of the bowel off of the ovary and uterine corpus. Good integrity to the areas of the bowel and epiploic areas where dissection was performed was noted after complete dissection. No other endometriosis implants were seen but it was suspected that that was because of the severe adhesions. Excellent hemostasis was noted and chromotubation performed and the left fallopian tube was noted to be patent and the right tube was noted to be absent. Liver and upper abdomen were visualized notably within normal limits and no other gross abnormalities were seen in the abdomen. All instruments removed from the abdomen after gas was desufflated. Port sites were closed with 3-0 Monocryl Steri's and op sites were applied. All instruments removed from the vagina and patient was awoken and taken recovery in stable condition. Grafts/Implants Used: none Complications none Admit VTE Documentation VTE Present on Admission: No VTE Mechan Device Prophylaxis: SCD's Multi Select Codes Urinary/Genital Urinary/Genital CPT Codes: 45538 Chromotubation and 79832 Laproscopic ablation endometriosis (ovarian cystectomy)
--- NOTE | 2022-05-13 10:40 | DCINST_ITS ---
Discharge Instructions Diet Discharge Diet: No restrictions Activity Discharge Activity: Return to Normal Activity, May Drive (when pain free) and May Shower May resume sexual activity in: 1 week Weight Bearing Status: Full weight bearing Lifting Restrictions: 30 lbs for 2 weeks Dressing / Incision Call your doctor if your incision/area has: Continuous Slow Oozing, Sudden Increased Bleeding, Increased Pain/ Swelling, Increased Redness and Foul Smelling Discharge Call your doctor if you observe: Fever of 101 or Higher, Using more than 1 pad per hour, Shortness of breath, Chest pain and Uncontrolled pain Suture Line Care: Avoid Pulling/Pushing and Avoid Pinching/Bending Remove Dressing in: 1 week (if present) Cleanse incision/area with: Soap & Water and Keep Dressing Clean & Dry Follow Up Care Please Follow Up With: Virgie Matias MD When: Call to make an appointment with your doctor for a postop visit in 2 weeks Test Results: Test results from this visit will be discussed in further detail at your follow- up appointment, if applicable. Discharge Plan Admission Attending Provider: Virgie Matias Primary Care Provider: Zachary Barber Discharge Orders/Prescriptions Prescriptions: New oxycodone-acetaminophen [Percocet] 5-325 mg tablet 1 tab PO Q6H PRN (Reason: pain) 7 Days Qty: 20 0RF enoxaparin [Lovenox] 40 mg/0.4 mL syringe 40 mg SQ DAILY 7 Days Qty: 20 1RF No Action loratadine [Claritin] 10 mg tablet 10 mg PO DAILY magnesium oxide 500 mg capsule 500 mg PO DAILY multivitamin Tablet 1 tab PO DAILY alprazolam 0.5 MG tablet 0.5 mg PO PRN PRN (Reason: Anxiety) metformin 500 mg tablet 500 mg PO TID medroxyprogesterone 10 mg tablet 10 mg PO DAILY Label Comments: TAKE ONE TABLET BY MOUTH DAILY FOR 10 DAYS DIRECTED starting on cycle day 14 Referrals / Follow Up: Zachary Barber DO [Primary Care Provider] - Disposition Disposition (needs filled in before D/C Order can be placed): Home, Self Care
[2022-05-13 13:56] LABS: Bedside Glucose 99 mg/dL (74-106)
== END 2022-05-13 16:39 | disposition home or self-care (01) ==
LOC: SDC 08:57 → AC 08:59
PROVIDERS: Anesthesiology; PCP Family Medicine; Referring Provider Obstetrics & Gynecology; Visit Provider Obstetrics & Gynecology
PROC: (CPT 58720; principal; 2022-05-13 10:20)
DX: E28.2 Polycystic ovarian syndrome (principal); D68.61 Antiphospholipid syndrome; E11.9 Type 2 diabetes mellitus without complications; N93.9 Abnormal uterine and vaginal bleeding, unspecified; N97.9 Female infertility, unspecified; F41.9 Anxiety disorder, unspecified; F32.9 Major depressive disorder, single episode, unspecified; Z79.899 Other long term (current) drug therapy; Z79.84 Long term (current) use of oral hypoglycemic drugs
CPT/HCPCS: 58662; 58350; 00840; 36415; 80048; 81025; 82962; 83036; 85027; 86850; 86900; 86901; J7120; J2405; Q9968

== ENCOUNTER → 2023-04-09 | Outpatient (CLI) | payer OTHER, SELFPAY ==
[2023-04-14 14:08] LABS: HPV APTIMA, High Risk Negative (Negative)
== END | disposition home or self-care (01) ==
LOC: LABSPEC 11:26
PROVIDERS: PCP Family Medicine; Referring Provider Obstetrics & Gynecology; Visit Provider Obstetrics & Gynecology
DX: Z12.4 Encounter for screening for malignant neoplasm of cervix (principal)
CPT/HCPCS: 87624; 88175; G0145